=== PATIENT | male | born 1985 | race Caucasian/White ===

== ENCOUNTER 2023-06-10 10:02 | Emergency (ER) | payer MEDICAID, SELFPAY ==
[2023-06-10 10:06] VITALS: BP 127/90; PULSE 92; RESP 14; O2SAT 98
--- NOTE | 2023-06-10 10:13 | ECG_ITS ---
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 Measurements Intervals [place] Rate: 96 P: 27 ND: 146 QRS: 48 QRSD: 101 T: 27 QT: 326 QTc: 414 Interpretive Statements SINUS RHYTHM No previous ECG available for comparison Electronically Signed On 06-10-2023 20:04:18 CDT by Cee Davies M.D. [email or web address]US [facility].Valentin Uzhun/store/[id number] f
[2023-06-10 11:14] VITALS: BP 171/94; PULSE 92; RESP 16; O2SAT 95
--- NOTE | 2023-06-10 11:23 | XR_ITS ---
WS: [id number] EXAMINATION: XR chest 1V portable [id number] REASON FOR EXAM: chest COMPARISON: 07/06/2011 ORDER DATE: 06/10/2023 11:40 AM TECHNIQUE: A single, portable frontal chest x-ray was obtained. X-RAY FINDINGS: The lungs are clear. Pleural spaces are clear. No pleural effusions or pneumothorax. Cardiomediastinal silhouette is normal. No evidence for pulmonary edema. Soft tissue and osseous structures are unremarkable. No tubes or lines are present. IMPRESSION: Unremarkable frontal portable chest x-ray.
[2023-06-10] MEDS: aspirin 81 mg Chew Tablet 324 MG PO (11:31)
--- NOTE | 2023-06-10 11:44 | PC.PHAR ---
pt is from [facility]-medications entered are from the pts mar from [facility]
[2023-06-10 12:04] LABS: Basophils % 0.3 %; Eosinophils # 0.4 10^3/uL (0.0-0.8); Eosinophils % 3.6 %; Lymphocytes # 3.6 10^3/uL (0.8-4.8); Lymphocytes % 35.1 %; Mean Corpuscular HGB Conc 33.7 g/dL (30-55); Mean Corpuscular Hemoglobin 28.5 pg (27-33); Mean Corpuscular Volume 84.5 fl (82-101); Mean Platelet Volume 9.1 fL (7.4-10.4); Monocytes # 1.4 10^3/uL (0.2-0.9); Neutrophils # 4.66 10^3/uL (1.8-7.7); Nucleated Red Blood Cells % 0 %; Platelet Count 291 10^3/cmm (157-399); Red Blood Count 5.09 10^6/uL (3.85-5.65); Red Cell Distribution Width 13.7 % (12.1-15.1); White Blood Count 10.14 10^3/uL (3.29-11.43)
[2023-06-10 12:21] LABS: Alanine Aminotransferase 56 U/L (0-41); Albumin Level 4.4 g/dL (3.5-5.2); Alkaline Phosphatase 132 U/L (40-130); Anion Gap 15.3 (5-19); Aspartate Amino Transferase 32 U/L (0-40); Blood Urea Nitrogen 14 mg/dL (6-20); Calcium 9.4 mg/dL (8.5-10.5); Carbon Dioxide 25 mmol/L (22-29); Chloride 101 mmol/L (98-107); Globulin 2.6 g/dL (1.3-4.6); Glomerular Filtration Rate 150.8 mL/min (90-130); Glucose 108 mg/dL (65-115); Osmolality Calculated 285 mOsm/kg (285-295); Potassium 4.3 mmol/L (3.5-5.1); Sodium 137 mmol/L (136-145); Total Bilirubin 0.2 mg/dL (0.15-1.2)
[2023-06-10 12:26] LABS: Troponin(5th) Baseline 6 ng/L (0-15)
--- NOTE | 2023-06-10 13:23 | ECG_ITS ---
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 Measurements Intervals [place] Rate: 79 P: 25 CT: 160 QRS: 13 QRSD: 94 T: 45 QT: 347 QTc: 399 Interpretive Statements SINUS RHYTHM Compared to ECG 06/10/2023 10:13:56 No significant changes Electronically Signed On 06-10-2023 20:45:09 CDT by Cee Davies M.D. [email or web address].[facility] SystemsiWattket[facility] troyFOXTOWN/store/[id number]
--- NOTE | 2023-06-10 13:46 | ED_ITS ---
HPI - Chest Pain General: Chief Complaint: Chest Pain Stated Complaint: chest pain, irregular hr Time Seen by Provider: 06/10/23 10:03 Source: patient Mode of arrival: ambulatory History of Present Illness: 38-year-old male presents emergency room complaining of chest discomfort. 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 He has been coughing the last few days he did start him on some oral antibiotics has not had any diarrhea or anosmia. Cough has been nonproductive no fevers sweats or chills. MD complaint: chest pain Onset (ago): hour(s) Pain location: substernal Pain radiation: none Severity: moderate Quality: sharp Relieving factors: nothing Exacerbating factors: nothing Associated symptoms: Deny abdominal pain, diaphoresis, dyspnea, fever(s), leg edema, nausea, palpitations, sense of impending doom, syncope or vomiting Review of Systems Const: Denies: fever(s), chills or diaphoresis ENMT: Denies: throat pain, ear or mastoid pain, nasal discharge or nasal congestion Card: Denies: chest pain, palpitations or syncope Resp: Denies: dyspnea GI: Denies: abdominal pain, nausea or vomiting : Denies: flank pain, dysuria, urinary frequency or urinary urgency Musc: Denies: neck pain or back pain Skin/Breast: Denies: rash or pruritus [facility] PFSH: Medical History (Updated 06/10/23 @ 14:20 by Todd Ferreira DO) HTN (hypertension) Physical Exam Const: GENERAL APPEARANCE: cooperative and comfortable ORIENTATION/CONSCIOUSNESS: Yes awake, Yes oriented to person, Yes oriented to place and Yes oriented to time HENMT: COMMON NORMALS: normocephalic, atraumatic and hearing grossly normal bilaterally HEAD & SCALP: normocephalic and atraumatic Resp: COMMON NORMALS: normal respiratory effort, No retractions, No use of acc essory muscles and clear to auscultation bilaterally AUSCULTATION: clear to auscultation bilaterally Cardio: COMMON NORMALS: regular rate, regular rhythm and No murmurs present (Cardio) RATE: regular rate RHYTHM: regular rhythm GI: COMMON NORMALS: Soft to palpation and No hepatosplenomegaly present AUSCULTATION: Yes normoactive bowel sounds PALPATION: Yes Soft to palpation, No Tenderness to palpation present (GI), No Guarding due to palpation present (G I) and Yes No hepatosplenomegaly present Extremity: COMMON NORMALS: normal to inspection, capillary refill normal, no clubbing, cyanosis or edema, no calf tenderness and no pedal edema Neuro: SENSORIUM/ORIENTATION: Yes oriented to person, Yes oriented to place and Yes oriented to time Skin: COMMON NORMALS: no rashes or lesions noted GENERAL SKIN EXAM: no rashes or lesions noted Course Vital Signs: Vital signs: Vital Signs Pulse Rate 92 06/10/23 11:14 Respiratory Rate 16 06/10/23 11:14 Blood Pressure 171/94 06/10/23 11:14 Pulse Oximetry 95 06/10/23 11:14 Oxygen Delivery Me thod Room Air 06/10/23 10:06 MDM - Chest Pain Medical Decision Making Cardiac enzymes unremarkable Labs imaging reviewed EKG shows no acute ST changes. Suspect may be gastric in nature. Patient does not have any further symptoms. He was recently prescribed Augmentin for a upper respiratory infec tion so this could be pleuritic. From that. Recommend he complete the course of antibiotics blood pressure is mildly elevated should be rechecked on an outpatient basis return if has further problems. Medical Records I reviewed the patient's medical records. Lab Data I reviewed the patient's lab results. 06/10/23 11:56 06/10/23 11:56 Laboratory Results WBC 10.14 10^3/uL (3.29-11.43) 06/10/23 11:56 RBC 5.09 10^6/uL (3.85-5.65) 06/10/23 11:56 Hgb 14.50 g/dL (11.27-16.99) 06/10/23 11:56 Hct 43.0 % (37-53) 06/10/23 11:56 MCV 84.5 fl (82-101) 06/10/23 11:56 MCH 28.5 pg (27-33) 06/10/23 11:56 MCHC 33.7 g/dL (30-55) 06/10/23 11:56 RDW 13.7 % (12.1-15.1) 06/10/23 11:56 Plt Count 291 10^3/cmm (157-399) 06/10/23 11:56 MPV 9.1 fL (7.4-10.4) 06/10/23 11:56 Neut % (Auto) 46.0 % 06/10/23 11:56 Lymph % (Auto) 35.1 % 06/10/23 11:56 [place] % (Auto) 14.0 % 06/10/23 11:56 Eos % (Auto) 3.6 % 06/10/23 11:56 Baso % (Auto) 0.3 % 06/10/23 11:56 Neut # (Auto) 4.66 10^3/uL (1.8-7.7) 06/10/23 11:56 Lymph # (Auto) 3.6 10^3/uL (0.8-4.8) 06/10/23 11:56 [place] # (Auto) 1.4 10^3/uL (0.2-0.9) H 06/10/23 11:56 Eos # (Auto) 0.4 10^3/uL (0.0-0.8) 06/10/23 11:56 Baso # (Auto) 0.0 10^3/uL (0.0-0.1) 06/10/23 11:56 Nucleated RBC % (auto) 0 % 06/10/23 11:56 Nucleated RBCs # 0.0 /100WBC 06/10/23 11:56 Sodium 137 mmol/L (136-145) 06/10/23 11:56 Potassium 4.3 mmol/L (3.5-5.1) 06/10/23 11:56 Chloride 101 mmol/L (98-107) 06/10/23 11:56 Carbon Dioxide 25 mmol/L (22-29) 06/10/23 11:56 Anion Gap 15.3 (5-19) 06/10/23 11:56 BUN 14 mg/dL (6-20) 06/10/23 11:56 Creatinine 0.6 mg/dL (0.7-1.2) L 06/10/23 11:56 GFR Calculation 150.8 mL/min (90-130) H 06/10/23 11:56 Glucose 108 mg/dL (65-115) 06/10/23 11:56 Calculated Osmolality 285 mOsm/kg (285-295) 06/10/23 11:56 Calcium 9.4 mg/dL (8.5-10.5) 06/10/23 11:56 Total Bilirubin 0.2 mg/dL (0.15-1.2) 06/10/23 11:56 AST 32 U/L (0-40) 06/10/23 11:56 ALT 56 U/L (0-41) H 06/10/23 11:56 Alkaline Phosphatase 132 U/L (40-130) H 06/10/23 11:56 Troponin T Baseline 6 ng/L (0-15) 06/10/23 11:56 Troponin T 120 Minute 6.00 ng/L (0-15) 06/10/23 13:45 Delta Troponin T 0 ABS# (0-10) 06/10/23 13:45 Total Protein 7.0 g/dL (6.6-8.7) 06/10/23 11:56 Albumin 4.4 g/dL (3.5-5.2) 06/10/23 11:56 Globulin 2.6 g/dL (1.3-4.6) 06/10/23 11:56 Discharge Plan Discharge Patient Disposition: Home Clinical Impression: Atypical chest pain, HTN (hypertension) Condition: Stable Prescriptions: No Action clonidine HCl 0.1 mg tablet 0.1 mg PO BID PRN (Reason: Blood Pressure) mirtazapine 15 mg tablet 15 mg PO BEDTIME prazosin 2 mg capsule 2 mg PO BEDTIME bupropion HCl 150 mg tablet extended release 24 hr 150 mg PO QAM amoxicillin 875 mg tablet 875 mg PO BID 7 Days Qty: 14 0RF nicotine (polacrilex) 2 mg Gum 2 mg BUCCAL Q1H PRN (Reason: Smoking Cessation) Tussin 100 mg/5 mL Liquid 400 mg PO Q6H PRN (Reason: Cough) ibuprofen 200 mg Tablet 400 mg PO Q6H PRN (Reason: Pain) Flonase Allergy Relief 50 mcg/actuation spray,suspension 1 spray intranasal QAM Rx Instructions: administer into each nostril Discharge Orders: Discharge ED (Routine); Ordered 06/10/23 Ordered By: Todd Ferreira Discharge Diet: Usual diet Discharge Activity: Increase activity as tolerated Patient Instructions: Opioid Safety, Pain Management Activity Restrictions/Additional Instructions: You are seen today for atypical chest pain. Your cardiac enzymes and EKGs were unremarkable this may be related to the respiratory infection you have had recently or reflux. Continue the course antibiotics had previously prescribed for persist follow-up with your primary care doctor. You should follow-up with your primary care doctor and reevaluate blood pressure.. Coding Level of Care Code ED Laundry Route Driver for Sheridan Sosa
[2023-06-10 14:21] LABS: Troponin 5 2HR Delta 0 ABS# (0-10)
--- NOTE | 2023-06-19 12:07 | DCPLANNER ---
manager hotel called patient due to no primary care physician - no answer at this time.
== END 2023-06-10 14:46 | disposition home or self-care (01) ==
PROVIDERS: Emergency Provider Family Medicine
DX: R07.89 Other chest pain (principal); I10 Essential (primary) hypertension
CPT/HCPCS: 71045; 80053; 84484; 85025; 93005; 99285